=== PATIENT | female | born 1970 | race Caucasian/White ===

== ENCOUNTER → 2017-04-22 | Outpatient (CLI) | payer OTHER ==
--- NOTE | 2017-04-23 07:47 | MAMMOGRAPHY REPORT ---
UNILATERAL LEFT DIGITAL DIAGNOSTIC MAMMOGRAM TOMOSYNTHESIS AND TARGETED LEFT ULTRASOUND: 04/22/2017 CLINICAL HISTORY: 46-year-old woman with a personal history of left breast atypia called back from re cent screening mammogram for a 3 mm nodular asymmetry in the far posterior medial left breast, only s een on the CC view. Family history of breast cancer = mother. TECHNIQUE: Spot compression left CC and MLO 2-D and tomosynthesis images, with an additional spot com pression left CC 2-D and tomosynthesis view after rolling the breast. COMPARISON: Comparison is made to exams dated: 04/09/2017 mammogram, 03/14/2016 mammogram, 03/06/2016 mammogram, 03/04/2015 mammogram, 08/27/2014 mammogram, and 02/16/2014 mammogram - [facility]. BREAST COMPOSITION: There are scattered areas of fibroglandular density in the left breast. FINDINGS: The initial Spot compression left CC view demonstrates a persistent 2.7 mm nodular asymmet ry which may be associated with a blood vessel in the medial and posterior left breast. There is tor tuosity of blood vessels in the upper inner quadrant of the left breast on the spot compression MLO t omosynthesis images, which may represent a correlate. No associated architectural distortion or calc ification. Further evaluation with ultrasound was performed. Targeted ultrasound was performed throughout the entire medial left breast with particular attention to the upper inner quadrant. Sonographically normal tissue is seen in addition to a small benign ane choic simple cyst located in the 9:00 axis, 1 cm from the nipple, measuring 3.3 x 1.6 x 1.8 mm. This is not thought to correlate with the nodular asymmetry given it is located middle depth within the b reast parenchyma as opposed to posterior depth. An additional spot compression left cc view was obtained after slight rolling in position and this de monstrates complete effacement of the nodular asymmetry, confirming benignity. No persistent mass or unexpected architectural distortion. This finding is considered benign and recommend return to dimas al screening mammography schedule. Also consider breast MRI given the personal history of left breas t atypia and family history of breast cancer. IMPRESSION: ACR BI-RADS CATEGORY 2: BENIGN, TARGETED ULTRASOUND ACR BI-RADS CATEGORY 2: BENIGN There is effacement of the nodular asymmetry in the medial posterior left breast, which could have re presented tortuosity of a vessel. Overall, no mammographic or targeted sonographic evidence of malig ameena in the left breast. Recommend routine screening mammography in one year can consider addition of breast MRI given the personal history of left breast atypia and family history of breast cancer. These results and recommendations were discussed with the patient at the time of the exam. Approximately 10% of breast cancers are not detected with mammography. A negative mammographic report should not delay biopsy if a clinically suggestive mass is present. Nelia Lombardi M.D. ay/:04/22/2017 12:32:20 Cost Estimating Engineer: Sunny DUNBAR(R)(Rachel), [facility] letter sent: Normal 1/2 BI-RADS Code: ACR BI-RADS Category 2: Benign Ultrasound BI-RADS: ACR BI-RADS Category 2: Benign
== END | disposition home or self-care (01) ==
LOC: C.MAMM 11:27
PROVIDERS: ATTEND Physician Assistant
DX: N64.89 Other specified disorders of breast (principal); Z80.3 Family history of malignant neoplasm of breast

== ENCOUNTER → 2017-05-15 | Outpatient (CLI) | payer OTHER ==
[~2017-05-15] MED LIST: GADAVIST IV PRN
--- NOTE | 2017-05-16 07:55 | MAMMOGRAPHY REPORT ---
BREAST MRI OF BOTH BREASTS : 05/15/2017 CLINICAL HISTORY: Personal history of left breast atypia status post surgical excision. Family histo ry of breast cancer. The patient presents for screening bilateral breast MRI. COMPARISON: Comparison is made to exams dated: 04/22/2017 ultrasound, 04/22/2017 mammogram, 04/09/2017 mammogram, 03/06/2016 mammogram, 03/04/2015 mammogram, and 08/27/2014 mammogram - [facility]. Technique: The patient was placed prone in a dedicated breast imaging coil. Precontrast axial T1-radha ghted, axial T2-weighted fat saturation, and axial T1-weighted fat saturation images were obtained. After the administration of 4.5 mL of Gadavist IV contrast, sequential T1-weighted fat saturation katie ges were obtained. Subtraction images were obtained of the dynamic contrast enhanced sequences, and 3-D reformations were performed. The [employer] software was used for kinetic analysis. Findings: There is mild to moderate background parenchymal enhancement involving bilateral breasts. There are no suspicious enhancing masses or areas of abnormal non-mass enhancement within either breast. There are multiple small foci of enhancement seen scattered in bilateral breasts, which are considered milena ign given the multiplicity and bilaterality and felt to represent normal background parenchymal enhan cement. A focal area of linear non-mass enhancement seen within the left upper outer quadrant is con sistent with postsurgical changes from prior excisional biopsy. There is no evidence of axillary adenopathy. The chest wall structures are negative. Visualized ext ramammary soft tissues are grossly unremarkable. IMPRESSION: ACR BI-RADS CATEGORY 2: BENIGN No MRI evidence of malignancy in either breast. A 1 year screening breast MRI is recommended. Also recommend routine bilateral screening mammograms, due March 2018. Breanna Ford M.D. /:05/15/2017 17:01:25 Cops: nocturnist physician, [facility] letter sent: Normal 1/2 BI-RADS Code: ACR BI-RADS Category 2: Benign
== END | disposition home or self-care (01) ==
LOC: C.MRI 15:28
PROVIDERS: ATTEND Surgery
DX: Z80.3 Family history of malignant neoplasm of breast (principal); Z12.31 Encounter for screening mammogram for malignant neoplasm of breast